=== PATIENT | female | born 1965 | race Hispanic/Latino ===

== ENCOUNTER 2017-10-30 19:43 | Emergency (ER) | payer SELFPAY ==
[~2017-10-30] VITALS: Ht 162.6 cm; Wt 99.8 kg
[~2017-10-30 19:43] MED LIST: PEPCID40 MG PO
[2017-10-30 19:55] VITALS: BP 121/79
== END 2017-10-30 21:09 | disposition admitted as inpatient to this hospital (09) ==
LOC: ERH 19:43
DX: R51 Headache (principal); J02.9 Acute pharyngitis, unspecified; R05 Cough; R53.83 Other fatigue
CPT/HCPCS: 87804; 87804-59; 99281